=== PATIENT | female | born 1985 | race Caucasian/White ===

== ENCOUNTER 2017-11-23 20:00 | Inpatient (IN) | payer OTHER ==
[2017-11-23 21:27] VITALS: BMI 26.8
--- NOTE | 2017-11-23 21:32 | OBHP ---
Datetime: 11/23/2017 20:40 IP Adm Impression: Term, intrauterine IP Admit Plan: Observation/Evaluation Admit Comment, IP Provider: edc 12/01/17 presents w/ c/o pelvic pressure. denies decreased f m, srom, bleeding. state preg uncomplicated allerg: sulfa rash medic:pnv pshx: d_c for spab pmhx: denies I: 38.4wks P: pt dw/ dr singleton desires 23hr observ Pelvic Type - PN: Adequate Extremities - PN: Normal Abdomen - PN: Normal Back - PN: Normal Lungs - PN: Normal Heart - PN: Normal Neurologic - PN: Normal HEENT - PN: Normal General - PN: Normal Presentation-Admit: Vertex FHR - Baseline A Provider: 140 Membranes, Provider: Intact Contraction Comments Provider: occasional Comments, ACOG Physical Exam: hepBsag neg/hiv,rpr nr/ vzi/ri GBS+ A+ EGA AdmitDate IP: 38.4 Vital Signs Provider: Within Normal Limits IP Chief Complaint: Maternal discomfort NICHD Variability Prov Fetus A: Moderate 6-25bpm NICHD Accel Fetus A IP Provider: 15X15 FHR Category Provider Fetus A: Category I Dilatation, Provider: 0 Effacement, Provider: 30 Station, Provider: -1 Genitourinary Exam: Normal
[2017-11-23 22:35] LABS: SQUAMOUS EPITHIAL < 1 /hpf (0-5); URINE BACTERIA RARE (<OCC); URINE BILIRUBIN NEGATIVE (NEGATIVE); URINE BLOOD NEGATIVE (NEGATIVE); URINE CLARITY Clear (Clear); URINE COLOR Colorless (YELLOW); URINE GLUCOSE (UA) NORMAL (Normal); URINE LEUKOCYTE ESTERASE NEG Leu/uL (Negative); URINE PROTEIN NEGATIVE (NEGATIVE); URINE UROBILINOGEN NORMAL mg/dL (0.2-1.0)
[2017-11-24 05:28] LABS: BASO % 0.4 % (0.0-2.0); EOS # 0.2 K/uL (0.0-0.7); EOS % 1.9 % (0.0-4.0); HEMOGLOBIN 12.3 g/dL (11.0-16.0); LYMPH # 2.3 K/uL (1.0-4.3); MEAN CORPUSCULAR HEMOGLOBIN 30.3 pg (27.0-31.0); MEAN CORPUSCULAR HGB CONC 33.7 g/dL (33.0-37.0); MEAN PLATELET VOLUME 8.1 fL (7.2-11.7); MONO # 0.6 K/uL (0.0-0.8); MONO % 5.6 % (0.0-10.0); NEUT # 8.3 K/uL (1.8-7.0); NEUT % 72.1 % (50.0-75.0); RBC 4.06 Mil/uL (3.80-5.20); RED CELL DISTRIBUTION WIDTH 13.8 % (11.5-14.5); WHITE BLOOD COUNT 11.5 K/uL (4.8-10.8)
[2017-11-24 05:43] LABS: ALB/GLOB RATIO 1.1 (1.0-2.1); ALBUMIN 3.4 g/dL (3.5-5.0); ALT/SGPT 13 U/L (9-52); AST/SGOT 22 U/L (14-36); BLOOD UREA NITROGEN 6 mg/dL (7-17); CALCIUM 8.9 mg/dl (8.6-10.4); GFR AFRICAN-AMERICAN > 60; GFR NON-AFRICAN AMERICAN > 60
[2017-11-24] MEDS ORDERED: Penicillin G 5 Million Unit Vial IVPB ONE ×2 (09:25→15:44)
[2017-11-24] MEDS ORDERED: Lactated Ringer's 1,000 ML IV SCH (09:30)
--- NOTE | 2017-11-24 09:49 | OBPN ---
Datetime: 11/24/2017 09:45 IP Progress Impression: Normal progression of labor IP Progress Plan: Continue present management Membranes, Provider: Intact FHR - Baseline A Provider: 140 IP Progress Note Comment: pt seen and examiend iol for oligohgramino s/p cytoocel VSS EFM: Cat I tooc q 5 m in A/P @ 38+ wks IOL for oligohdratn s/p cytotle for cervidl plan reviewd cont toco and emf Vital Signs Provider: Reviewed; Within Normal Limits FHR Category Provider Fetus A: Category I NICHD Variability Prov Fetus A: Moderate 6-25bpm Datetime: 11/23/2017 20:40 Contraction Comments Provider: occasional Presentation-Admit: Vertex NICHD Accel Fetus A IP Provider: 15X15 Dilatation, Provider: 0 Effacement, Provider: 30 Station, Provider: -1 NICHD Decel Fetus A IP Provider: None
[2017-11-24] MEDS ORDERED: Sodium Citrate/Citric Acid 15 ml Sol PO STA (16:11)
[2017-11-24] MEDS ORDERED: cefOXitin IV 2 gm in Dextrose 2 GM/50 ML BAG IVPB ONE (16:13)
[2017-11-24] MEDS ORDERED: Oxytocin 20 units in LR 2,000 ML IV ONE (16:36)
[2017-11-24] MEDS ORDERED: Sodium Citrate/Citric Acid 15 ml Sol ONE (16:38)
[2017-11-24] MEDS ORDERED: Morphine 1 mg/ml preservative-free Inj(Duramorph) ONE (17:21)
--- NOTE | 2017-11-24 17:37 | OBPN ---
Datetime: 11/24/2017 17:29 IP Progress Impression: Non-reassuring heart rate IP Progress Plan: Continue present management Membranes, Provider: Ruptured Amniotic Fluid Color, Provider: Bloody Contraction Comments Provider: q 3 mn FHR - Baseline A Provider: 150 Gestation - Est Wks by US: 38.5 IP Progress Note Comment: pt seen and examiend many times pt noted ot have cateogry II tracing, given oxygen, left lateral, cervidl removel pt on continous montiro spontanoeus rom 3:20pm, celar cat II no imporvmeent with oxyge, lef tlarate r//ba/i of cont iol vs pltcs dw paeitn pt opted ofr cxs, r/b/a/i not lmtied ot infectin, blood loss, consent obtsiend preop antiiovs scds npo, ivf period of cat II pt reexamined 2cm pt now Vital Signs Provider: Reviewed FHR Category Provider Fetus A: Category II NICHD Variability Prov Fetus A: Minimal - Undetectable to <5bpm Dilatation, Provider: 2 Effacement, Provider: 50 Station, Provider: -3
[2017-11-24] MEDS ORDERED: Oxytocin 10 Units/ml Inj ONE (18:34)
--- NOTE | 2017-11-24 18:55 | OBDS ---
DELIVERY PERSONNEL Nurse Cabana Attendant Certified: N/A Delivery Doctor: Boston Morton MD Anesthesiologist: Warren Hand MD Turf Grower: N/A MATERNAL INFORMATION Provider Comments: pltcs live femlae ifnat gpars 9,9 ebl 800ml normal appearing utuers, tubes adn ovaries b/l baby deilvered with hand in cord and tight nuchal cord x 1 pediatriican present for dleivery LABOR SUMMARY EDC: 12/03/2017 00:00 No. Babies in Womb: 1 Attempted: No Labor Anesthesia: None LABOR INFORMATION Reason for Induction: Oligohydramnios Onset of Labor: 11/24/2017 11:00 Cervical Ripening Agents: Cervidil; Cytotec @ Other Ripening Agents: N/A Oxytocin: N/A Group B Beta Strep: Positive Antibiotics # of Doses: 1 Antibiotics Time of Last Dose: 11/24/2017 @ 15:47 Steroids Given: None Reason Steroids Not Administered: Not Applicable Other Reason Not Administered: N/A MEMBRANES Membranes Rupture Method: Spontaneous Rupture of Membranes: 11/24/2017 15:20 Length of Rupture (hrs): 3.07 Amniotic Fluid Color: Clear (Annotations: AmnioSwab positive.) Amniotic Fluid Amount: Moderate Amniotic Fluid Odor: Normal STAGES OF LABOR Stage 3 hrs: 0 Stage 3 min: 2 Total Time in Labor hrs: 7 Total Time in Labor min: 26 VAGINAL DELIVERY Episiotomy: None Laceration Extension: N/A Laceration Type: None Other Laceration: N/A Laceration Repair: N /A Initial Vag Sponge Count: N/A Final Vag Sponge Count: N/A Initial Vag Sharps Count: N/A Final Vag Sharps Count: N/A Sponge Count Correct: N/A Sharps Count Correct: N/A Count Comment: N/A CSECTION DELIVERY Primary Indication: Nonreassuring Status Other Primary Indication: N/A Secondary Indication: N/A Other Secondary Indication: N/A CSection Urgency: Emergency CSection Incidence: Primary Labor: Labor Elective: N/A CSection Incision: Lower Uterine Transverse CSection Incision Other: N/A Other Sterilization Procedure: N/A BABY A INFORMATION Infant Delivery Date/Time: 11/24/2017 18:24 Method of Delivery: Born in Route : No : N/A Forceps: N/A Vacuum Extraction: N/A Shoulder Dystocia : No SHOULDER DYSTOCIA BABY A Delivery Date/Time: 11/24/2017 18:24 PRESENTATION/POSITION BABY A Presentation: Compound Cephalic Presentation: Vertex Vertex Position: N/A Breech Presentation: N/A PLACENTA INFORMATION BABY A Placenta Delivery Time : 11/24/2017 18:26 Placenta Method of Delivery: Manual Removal Placenta Status: Delivered SCORES BABY A Heart Rate 1 min: >100 bpm Resp Effort 1 min: Good Cry Reflex Irritability 1 min: Cough or Sneeze or Pulls Away Muscle Tone 1 min: Active Motion Color 1 min: Body [place], Extremities Blue Resuscitation Effort 1 min: Tactile Stimulation SCORE 1 MIN: 9 Heart Rate 5 min: >100 bpm Resp Effort 5 min: Good Cry Reflex Irritability 5 min: Cough or Sneeze or Pulls Away Muscle Tone 5 min: Active Motion Color 5 min: Body [place], Extremities Blue Resuscitation Effort 5 min: Tactile Stimulation SCORE 5 MIN: 9 INFORMATION BABY A Gestational Age at Delivery: 38.5 Gestational Status: Term Outcome : Liveborn Infant Condition : Stable Sex: Female IDENTIFICATION/MEDS BABY A ID Band Number: [id number] ID Band Location: Left Leg; Left Arm Sensor Applied: Yes Sensor Number: [id number] Sensor Location : Cord Clamp WEIGHT/LENGTH BABY A Birthweight (gms): 2855 Infant Weight (lb): 6 Weight (oz): 5 Length Inches: 19.00 Infant Length cms: 48.3 CORD INFORMATION BABY A No. Cord Vessels: 3 Nuchal Cord : Around Neck x1, Tight Nuchal Cord Other: Cord around right hand True Knot: N/A Cord Blood Taken: Yes Banking/Donate Info: N/A Infant Suction: Mouth; Nose ASSESSMENT BABY A Infant Complications: Decreased Variability Physical Findings at Delivery: Within Normal Limits Respirations: Appears Normal Inner Tube Inserter/ALS Called : Yes Infant Care By: Dr. Kolby Knutson RN
--- NOTE | 2017-11-24 19:00 | PCM.SURG1 ---
Surgeon's Initial Post Op Note - Surgeon's Notes Surgeon: Rosie Morton MD Refuse Collector: Deon Glass MD Type of Anesthesia: Spinal Pre-Operative Diagnosis: Category II tracing, remote from delivery Operative Findings: live female infant, noraml appearing uteurs, tubes and ovareis bilaterally. umbilucal cord in baby hand, tight nuchal cord x 1. pediatricain prestn for dlievery. Dr Lyndsey Glass was advertising assistant and present for entire case adn essential iln gainign etnry, retraction, epxouser, holidng the bladder blade, closing all layers. Post-Operative Diagnosis: same as above Operation Performed: Primary low transverse ceserean section Specimen/Specimens Removed: placenta Estimated Blood Loss: EBL {In ML}: 800 Blood Products Given: N/A Drains Used: No Drains Post-Op Condition: Good Date of Surgery/Procedure: 11/24/17 Time of Surgery/Procedure: 18:00
--- NOTE | 2017-11-25 06:46 | OP ---
PROCEDURE DATE: 11/24/2017 PREOPERATIVE DIAGNOSIS: Category II tracing, remote from delivery. POSTOPERATIVE DIAGNOSIS: Category II tracing, remote from delivery. SURGEON: Rosie Morton MD JOB ESTIMATOR: Deon Glass MD TYPE OF ANESTHESIA: Spinal. OPERATIVE FINDING: Live female infant, normal-appearing uterus, tubes, and ovaries bilaterally. tight nuchal x1. Business Services Clerk was present for the delivery. Dr. Deon Glass, was surgical lead, who was present for the entire case and assisted in gaining entry, retraction, exposure, holding the bladder blade, closing all layers. OPERATION PERFORMED: Primary low transverse section. SPECIMENS REMOVED: Placenta. ESTIMATED BLOOD LOSS: 800 mL. BLOOD PRODUCTS: None. COMPLICATIONS: None. DESCRIPTION OF PROCEDURE: The patient was taken to the operating room where she was given spinal anesthesia. Once found to be adequate, she was positioned on the operating table in dorsal supine position. The patient was then prepped and draped in the normal usual fashion. The patient received preoperative prophylactic antibiotics. A Pfannenstiel skin incision was made with a scalpel and carried in line to the underlying fascia with Bovie. The fascia was incised in the midline, and the incision was extended laterally with the Bovie. The superior aspect of the fascial incision was grasped with Allis and Elkin clamps and underlying rectus muscle dissected off bluntly. Attention was then turned to the inferior aspect in a similar fashion, was grasped with Allis and Elkin clamps and the underlying rectus muscles were dissected off bluntly. The rectus muscle was then bluntly in the midline. The peritoneum was identified and entered into clear space. The incision was extended laterally and superiorly until there was good visualization of the bladder. The lower end of the Delfina was then inserted. The vesicouterine peritoneum was incised in a transverse fashion. Bladder flap was created and lower end of the Delfina was then reinserted. Lower uterine segment was incised in transverse fashion. Lower uterine segment incised laterally bluntly. The 's head was delivered with the hand holding the umbilical cord atraumatically, through the incision, followed by delivery of the anterior and posterior shoulders, followed by delivery of the body. The tight nuchal cord was then reduced. Umbilical cord was clamped and cut. Baby was handed off to the awaiting grip boss. Cord blood and cord gases were collected and sent x2. The placenta was then delivered manually. The uterus was exteriorized and cleared off all clots and debris. The uterine incision was repaired with 0 Vicryl in running continuous locked fashion. A second layer of the same suture was used to close the uterus in a running imbricating manner. There was good hemostasis at the uterine incision site. There were normal tubes and ovaries bilaterally. The uterus was then returned to the abdomen. The paracolic gutters were cleared of all clots and debris. The peritoneum was reapproximated with 2-0 chromic in a running continuous fashion. The rectus was reapproximated and closed with 2-0 chromic in an interrupted manner. The fascia was reapproximated and closed with 0 Vicryl in running continuous fashion. The subcutaneous layers were closed with 2-0 plain in interrupted manner. The skin was reapproximated and closed with 3-0 Monocryl in a running subcuticular fashion. At the end of the procedure, all needles, sponge, and instrument counts were noted as correct x2. The patient tolerated the procedure well and was transferred to the recovery room in stable condition. Rosie Morton MD
--- NOTE | 2017-11-25 07:16 | OBPPN ---
Datetime: 11/25/2017 07:13 PP Pain Prov: Within normal limits PP Nausea Prov: Denies PP Flatus Prov: Yes PP Breasts Prov: Normal PP Heart Prov: Normal PP Lungs Prov: Normal PP Abdomen/Uterus Prov: Normal PP Lochia Prov: Normal PP Vulva/Perineum Prov: Normal PP CVA Tenderness Prov: Normal PP Extremities Prov: Normal PP C/S Incision Prov: Normal PP Progress Prov: Normal PP Comments Phys Exam Prov: abdo soft, nt, nd incison c/d/ih fundus; firm, below lvel of umbiucs PP Impression Prov: Normal progression PP Plan Prov: Continue present management PP Progress Note Prov: pt seen and examined and reports pain cotorlled iw medicaion. pt ambauitng, voiding, passing flatus, bresat feeding VSS PE see above A/P s/p PLTCS POD #1 pain mangment dc [place] advance diet am labs Vital Signs Provider PP: Reviewed; Within Normal Limits
[2017-11-25 08:19] LABS: BASO % 0.3 % (0.0-2.0); EOS # 0.1 K/uL (0.0-0.7); EOS % 0.6 % (0.0-4.0); HEMOGLOBIN 11.5 g/dL (11.0-16.0); LYMPH # 1.3 K/uL (1.0-4.3); LYMPH % 9.1 % (20.0-40.0); MEAN CELL VOLUME 89.4 fL (81.0-99.0); MEAN CORPUSCULAR HEMOGLOBIN 30.7 pg (27.0-31.0); MEAN CORPUSCULAR HGB CONC 34.3 g/dL (33.0-37.0); MEAN PLATELET VOLUME 7.9 fL (7.2-11.7); MONO # 0.9 K/uL (0.0-0.8); MONO % 6.1 % (0.0-10.0); NEUT # 12.4 K/uL (1.8-7.0); NEUT % 83.9 % (50.0-75.0); PLATELET COUNT 265 K/uL (130-400); RBC 3.74 Mil/uL (3.80-5.20); RED CELL DISTRIBUTION WIDTH 13.8 % (11.5-14.5); WHITE BLOOD COUNT 14.8 K/uL (4.8-10.8)
[2017-11-25 08:29] LABS: ALB/GLOB RATIO 1.1 (1.0-2.1); ALBUMIN 2.8 g/dL (3.5-5.0); ALT/SGPT 15 U/L (9-52); AST/SGOT 31 U/L (14-36); BLOOD UREA NITROGEN 4 mg/dL (7-17); CALCIUM 8.7 mg/dl (8.6-10.4); GFR AFRICAN-AMERICAN > 60; GFR NON-AFRICAN AMERICAN > 60
[2017-11-25 08:44] LABS: BANDS 6 % (0-2); LYMPHOCYTE 8 % (20-40); MONOCYTE 8 % (0-10); NEUTROPHIL 77 % (50-75); REACTIVE LYMPHOCYTES 1 % (0-0); TOTAL CELLS COUNTED 100
[2017-11-25 08:45] LABS: PLATELET ESTIMATE NORMAL (NORMAL); TOXIC GRANULATION PRESENT
[2017-11-25] MEDS: Prenatal Multivit/Folic Acid/Iron Tab PO SCH (10:01)
[2017-11-25] MEDS: Simethicone 80 mg Chewtab PO SCH ×4 (10:01→21:50)
[2017-11-25] MEDS: Oxycodone/Acetaminophen 5/325 mg Tab PO PRN ×4 (10:06→23:43)
[2017-11-25] MEDS ORDERED: Bisacodyl 5mg EC Tab PO ONE (18:57)
[2017-11-26] MEDS: Oxycodone/Acetaminophen 5/325 mg Tab PO PRN ×5 (03:24→22:40)
[2017-11-26 08:09] LABS: ALBUMIN 2.8 g/dL (3.5-5.0); ALT/SGPT 18 U/L (9-52); AST/SGOT 32 U/L (14-36); BLOOD UREA NITROGEN 5 mg/dL (7-17); CALCIUM 8.5 mg/dl (8.6-10.4); GFR AFRICAN-AMERICAN > 60; GFR NON-AFRICAN AMERICAN > 60
[2017-11-26] MEDS: Simethicone 80 mg Chewtab PO SCH ×5 (09:35→23:16)
[2017-11-26] MEDS: Prenatal Multivit/Folic Acid/Iron Tab PO SCH (09:35)
[2017-11-26] MEDS: Potassium Chloride 20 mEq ER Tab PO SCH (13:36)
[2017-11-26 16:14] VITALS: RESP 20
--- NOTE | 2017-11-26 22:06 | OBPPN ---
Datetime: 11/26/2017 22:03 PP Pain Prov: Within normal limits PP Nausea Prov: Denies PP Flatus Prov: Yes PP BM Prov: No PP Breasts Prov: Normal PP Heart Prov: Normal PP Lungs Prov: Normal PP Abdomen/Uterus Prov: Normal PP Lochia Prov: Normal PP Vulva/Perineum Prov: Normal PP CVA Tenderness Prov: Normal PP Extremities Prov: Normal PP C/S Incision Prov: Normal PP Progress Prov: Normal PP Impression Prov: Normal progression PP Plan Prov: Continue present management PP Progress Note Prov: pt seen and examined and reports pain cotorlled iwth medicaion. pt ambauitng, voiding, passing flatus, bresat feeding VSS PE see above A/P s/p PLTCS POD #2 pain mangment regular diet bowel remigmen encourage breast feedign adn lucas Vital Signs Provider PP: Reviewed; Within Normal Limits
[2017-11-27] MEDS: Oxycodone/Acetaminophen 5/325 mg Tab PO PRN ×3 (03:08→13:26)
[2017-11-27 08:01] VITALS: BP 102/68; PULSE 69; TEMP 98.3
[2017-11-27] MEDS: Simethicone 80 mg Chewtab PO SCH (10:03)
[2017-11-27] MEDS: Potassium Chloride 20 mEq ER Tab PO SCH (10:03)
[2017-11-27] MEDS: Prenatal Multivit/Folic Acid/Iron Tab PO SCH (10:04)
[2017-11-27 17:43] VITALS: O2SAT 98
== END 2017-11-27 13:40 | disposition home or self-care (01) | DRG 766 ==
LOC: C.EROB 20:00 → C.4D 21:49 → C.4M 11-24 22:10
PROVIDERS: ADMIT Obstetrics & Gynecology; ATTEND Obstetrics & Gynecology
PROC: 10D00Z1 Extraction of Products of Conception, Low, Open Approach (ICD-10-PCS; principal; 2017-11-24)
PROC: 3E0P7VZ Introduction of Hormone into Female Reproductive, Via Natural or Artificial Opening (ICD-10-PCS; 2017-11-24)
DX: O41.03X0 Oligohydramnios, third trimester, not applicable or unspecified (principal); O76 Abnormality in fetal heart rate and rhythm complicating labor and delivery; O69.1XX0 Labor and delivery complicated by cord around neck, with compression, not applicable or unspecified; O99.820 Streptococcus B carrier state complicating pregnancy; Z3A.38 38 weeks gestation of pregnancy; Z37.0 Single live birth